=== PATIENT | female | born 1940 | race Caucasian/White ===

== ENCOUNTER → 2017-03-14 | Outpatient (CLI) | payer MEDICARE ==
[~2017-03-14] MED LIST: ASPI81TA11 PO; ATEN25TA PO; COLA100C PO; CYAN1TAB24 PO; FERR325C PO; LEVO88TA2 PO; LISI-519 PO; OMEGCAP PO; OMEP20TA PO
[2017-03-14 14:13] LABS: BLOOD, URINE NEG (NEG); GLUCOSE,URINE NEG (NEG); KETONE, URINE NEG (NEG); NITRITE,URINE NEG (NEG); SQUAMOUS EPITHELIAL CELL URINE <1 /hpf (0-5); URINE COLOR YELLOW (YELLW/STRAW)
[2017-03-14 14:30] LABS: COMMENT (UR) CULT NOT INDICATED; CULTURE IF INDICATED CULT NOT INDICATED
== END ==
LOC: CPRE 12:44
PROVIDERS: ATTEND Obstetrics & Gynecology
DX: N85.00 Endometrial hyperplasia, unspecified (principal); N95.0 Postmenopausal bleeding
CPT/HCPCS: 81001

== ENCOUNTER → 2017-03-17 | Day surgery (SDC) | payer MEDICARE ==
--- NOTE | 2017-03-16 14:08 | MH ---
cc: KENDRA JAIMES DATE OF ADMISSION: 03/17/2017 ADMITTING DIAGNOSIS: Uterine prolapse with cystocele, rectocele and endometrial thickening. HISTORY OF PRESENT ILLNESS: The patient is a 76-year-old single white female para 3-0-0-4 who had been doing some heavy lifting at work and noticed protrusion of tissue per vagina in December of 2016. Evaluation on 01/24/2017 confirmed the findings. Ultrasound ordered showed a uterus that measured 5.3 cm with endometrium thickened to 9 mm. The ovaries could not be seen. She is now admitted for D&C and hysteroscopy. PAST MEDICAL HISTORY: Previous surgery included: 1. Tonsillectomy and adenoidectomy in childhood. 2. . 3. Dias's neuroma. 4. History of large B-cell lymphoma treated with chemotherapy in 2011. MEDICATIONS: She will bring in a list. ALLERGIES: CODEINE. OBSTETRICAL HISTORY: She had one set twins and two single pregnancies all delivered vaginally. 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 Alcohol occasional. Tobacco - none. Drugs - none. FAMILY HISTORY: Noncontributory. ____ HISTORY: Includes evaluation for syncope. PHYSICAL EXAMINATION: GENERAL: This is a well-nourished well-developed white female. VITAL SIGNS: Stable. HEAD, EYES, EARS, NOSE, THROAT: Normal. CHEST: Clear. HEART: Regular rate. BREASTS: Symmetrical. ABDOMEN: Benign. PELVIC EXAM: Exam reveals cystocele, rectocele, uterine prolapse. The uterus is normal in size and shape. Adnexa are nonpalpable. ASSESSMENT: As above. She is now admitted for hysteroscopy, D&C. While in the office, I explained the procedures, the risks, benefits, complications and the patient would like to proceed. MD TERRY Herndon/KUMAR /1:48 PM /1:58 PM MTDD
[~2017-03-17] VITALS: Ht 167.6 cm; Wt 81.5 kg
[~2017-03-17] MED LIST changes: +*ONDANSETRON 4 MG VIAL PERIprocedural Use ONLY ONE; +ACETAMINOPHEN 1000 MG/100 ML 100 ML IV PRN; +CHLORHEXIDINE GLUCONATE 2 % 1 PACK (2 CLOTHS) TOPICAL PRN; +DEXAMETHASONE SOD PHOS 4 MG/ML VIAL IV ONE; +DO NOT ADM ANY ANTICOAGULANT DRUGS PRN; +HYDROmorphone HCL PF 2 MG/ML VIAL ONE; +INSULIN HUMAN REGULAR 1,000 UNITS/10 ML VIAL SQ PRN; +KETOROLAC TROMETHAMINE 30 MG/ML (IVP) VIAL IV PUSH ONE; +LIDOCAINE HCL 1% PF 5 ML AMPULE OTHER ONE; +METOCLOPRAMIDE HCL 10 MG/2 ML VIAL IV PRN; +METOPROLOL TARTRATE 25 MG TAB PO PRN; +ONDANSETRON HCL 4 MG/2 ML VIAL IV PUSH ONE; +POVIDONE IODINE 5% (ANTISEPSIS KIT) 4 APPLICATIONS EACH NARE PRN; +PROPOFOL 200 MG/20 ML AMP IV ONE; +SODIUM CHLORID 0.9% 500 ML IV PRN; +ceFAZolin 1,000 MG/NS 100 ML IV SCH; +hydrALAZINE HCL 20 MG/ML VIAL IV ONE
[2017-03-17] MEDS: LACTATED RINGER'S 1000 ML IV PRN ×2 (06:15→08:15)
--- NOTE | 2017-03-17 08:28 | MP ---
cc: KENDRA JAIMES DATE OF SURGERY: 03/17/2017 PREOPERATIVE DIAGNOSIS Endometrial thickening, cystocele, rectocele, uterine prolapse. POSTOPERATIVE DIAGNOSIS Endometrial thickening, cystocele, rectocele, uterine prolapse. PROCEDURE Hysteroscopy, D&C. SURGEON Kendra Jaimes MD ANESTHESIA General LMA. ESTIMATED BLOOD LOSS Less than 5 cc. FLUIDS 0.5 liter crystalloid. OBJECTIVE FINDINGS Following induction of adequate general LMA anesthesia the patient was prepped and draped supine on the operating table in the dorsal lithotomy position in the usual sterile fashion with the bladder being drained by in and out catheterization. Exam under anesthesia revealed a normal size and shape uterus with a cystocele and rectocele, but good cervical support. A heavy weighted speculum was placed in the posterior fornix of the vagina. The anterior lip of the cervix was grasped with a single-tooth tenaculum. The cervix and uterus sounded to 6.5 cm with a soft dilator. The cervix was then dilated to #20 Rory dilator. The hysteroscope was passed with normal cervix with a large endometrial polyp. The scope was now withdrawn. Endocervical curettings were obtained with a small serrated curet. The polyp was removed with polyp forceps. The cavity was curetted clean with a small sharp curette removing the large polyp which was about 1 x 2 cm. The scope was now reinserted. The cavity was clean. All instruments were removed. All counts were correct. The patient's legs were taken out of the stirrups. She was awakened and taken to the recovery room in good condition. MD TERRY Herndon/BT /7:58 AM /8:19 AM
[2017-03-17 11:20] VITALS: BP 129/59; PULSE 70; RESP 20; TEMP 97.6; O2SAT 98
== END | disposition home or self-care (01) ==
LOC: HSDC 05:28 → EDUNIT# 07:30
PROVIDERS: ATTEND Obstetrics & Gynecology
DX: N81.4 Uterovaginal prolapse, unspecified (principal); N84.0 Polyp of corpus uteri; N95.0 Postmenopausal bleeding; I10 Essential (primary) hypertension
CPT/HCPCS: 00952; 58558; 88305; J0131; J0360; J0690; J1100; J1170; J1885; J2405; J2765; J7120